=== PATIENT | male | born 1935 | race Caucasian/White ===

== ENCOUNTER 2017-01-24 06:33 | Inpatient (IN) ==
--- NOTE | 2017-01-24 06:43 | Emergency Department Note ---
Arrival - Arrival ED Nursing Triage Note: C/O Left posterior rib pain s/p fall. Onset lastnight. Also c/o right wrist swelling/pain. Pt denies LOC. GCS 15/15 at time of triage. +abrasion/erythema to posterior lower left ribs Mode of Arrival: Wheelchair Source: Patient, Family Time Seen by Provider: 01/24/17 06:37 - History of Present Illness HPI Narrative: Patient is an 81-year-old white male with a history of myelodysplastic syndrome and and chronic leukemia routinely followed by Dr. Smallwood. The patient apparently got up about 4 this morning to let the dog out and fell. He complains of pain in the left posterior rib area. The family is also noticed some bruising in the left lower quadrant. The patient has been receiving blood transfusions weekly over the last 3-4 weeks due to his blood dyscrasia. Patient has been receiving chemotherapy as an outpatient from Dr. Smallwood. Onset (ago): hour(s) (2) Consistency: constant Severity: severe Allergies/Adverse Reactions: Allergies Allergy/AdvReac Type Severity Reaction Status Date / Time No Known Allergies Allergy Verified 11/14/15 09:37 Home Medications: Home Medications Medication Instructions Recorded Confirmed Type traMADol TAB [Ultram] 50 mg PO Q6HR PRN 11/14/15 01/24/17 History Sertraline [Zoloft] 50 mg PO DAILY 01/24/17 01/24/17 History Review of System - Review of System 12 point system: reviewed and no additional remarkable complaints except as stated - Review of System Constitutional: Absent: chills, fever Medical,Surgical,& Family Hx - Medical History HEENT: History of: Ear Problem (tubes to left ear/[place]) Gastrointestinal: History of: Gastrointestinal Cancer (colon) Musculoskeletal: History of: Musculoskeletal Problems (arthritis) - Social History Smoking Status: Never smoker Frequency of Alcohol Use: None Type of Drug Use: None Exam Vital Signs: Vital Signs Temperature 98.0 F 01/24/17 06:33 Pulse Rate 67 01/24/17 06:33 Respiratory Rate 14 01/24/17 06:33 Blood Pressure 121/61 01/24/17 06:33 O2 Sat by Pulse Oximetry 96 01/24/17 06:33 GENERAL: This is a chronically ill-appearing white male in no apparent distress. VITAL SIGNS: Reviewed HEENT: Head is atraumatic and normocephalic. Pupils are equal round react to light. Extraocular movements are intact. Oropharynx is benign with moist mucous membranes. NECK: Neck is soft and supple without tenderness. There are no masses. There is no lymphadenopathy. Trachea is midline. LUNGS: Lungs are clear to auscultation. Chest rises symmetrically. There is no chest wall tenderness. CV: Heart is regular rate and rhythm without murmurs rubs or gallops. ABDOMEN: Abdomen is soft, tender to palpation left upper quadrant. There is an area of ecchymosis in the left lower quadrant. There are no abdominal abnormal masses palpated. There is no organomegaly. Bowel sounds are present and active. There is no tenderness to palpation overlying the iliac wings bilaterally. SKIN: Skin is warm and dry. No rash. EXTREMITIES: Patient has full range of motion without tenderness. There is no pedal edema. NEUROLOGIC: Awake alert and oriented to person. Cranial nerves II through XII are grossly intact. Motor is 3 over 5 in all extremities bilaterally. Results - Labs CBC & BMP: 01/24/17 06:38 Lab Results: I have reviewed the patients labs - Diagnostic Findings Procedure: Chest x-ray: image reviewed by me (Questionable left seventh rib fracture. Increased pulmonary markings bilaterally.), CT Abdomen and Pelvis: image reviewed by me, report reviewed by me (Left posterior 11th rib fracture. Questionable cholecystitis. Cholelithiasis.) Disposition Clinical Impression: Myelodysplastic syndrome, Fall, Left 11th rib fracture, Right wrist pain Case discussed with: patient Disposition: Still a Patient Condition: Stable Time of Disposition: 07:48
[2017-01-24 06:56] LABS: Basophils # 0.1 10*3/uL (0.0-0.2); Basophils % 1.4 % (0.0-0.8); Eosinophils # 0.1 10*3/uL (0.0-0.87); Eosinophils % 0.6 % (0.00-10.9); Hematocrit 21.4 VOL% (42.0-52.0); Immature Granulocytes % 25.7 %; Immature Granulocytes Absolute 2.51 #; Lymphocytes # 1.1 10*3/uL (1.4-4.0); Lymphocytes % 11.7 % (21.2-54.2); Mean Corpuscular HGB Conc 32.7 GM/DL (32-36); Mean Corpuscular Hemoglobin 28 PG (27-34); Mean Corpuscular Volume 85.6 FL (87-102); Monocytes # 1.2 10*3/uL (0.11-0.8); Monocytes % 12.3 % (1.7-12.7); NRBC # 0.12 10*3/uL; Neutrophils # 4.7 10*3/uL (1.4-7.4); Neutrophils % 48.3 % (38.7-73.9); Platelet Count 152 T/CUMM (130-400); Red Cell Distribution Width 17.6 % (9.3-17.3); White Blood Count 9.8 T/CUMM (4-12)
[2017-01-24 07:04] LABS: INR 1.2; PT Patient Result 12.9 SECS; Partial Thromboplastin Time 31.6 SECS (0-40)
--- NOTE | 2017-01-24 07:42 | CT Report ---
CT abdomen pelvis w con Indication: Fall, left flank pain, rule out spleen injury Comparison: CT chest abdomen pelvis dated May 14, 2015 Technique: Multiple axial tomographic images of the abdomen and pelvis were obtained after the administration of 100 cc Omnipaque 350 intravenous contrast. Findings: Mild dependent change of the lungs present. Small right and trace left pleural effusions. No worrisome focal hepatic abnormality. Cholelithiasis suggested near the gallbladder neck which is small volume. Gallbladder appears upper limits of normal in size. Question mild wall thickening of the gallbladder. Pancreas appears grossly unchanged. Splenomegaly noted. The bilateral adrenal glands are grossly unremarkable. The bilateral kidneys are grossly unremarkable. The urinary bladder is incompletely distended. There is no evidence of gastrointestinal obstruction or acute appendicitis. Sequela of prior bowel surgery with anastomotic suture material noted within the right abdomen. Marked atherosclerotic calcifications demonstrated. Acute, minimally displaced posterolateral left rib 11 fracture. IMPRESSION: Acute, minimally displaced posterolateral left rib 11 fracture. Cholelithiasis suggested near the gallbladder neck which is small volume. Gallbladder appears upper limits of normal in size. Question mild wall thickening of the gallbladder. Consider gallbladder ultrasound for further evaluation. Small right and trace left pleural effusions. Splenomegaly. Prior bowel surgery. Other/detailed findings as above. The CT exam was performed using one or more of the following dose reduction techniques: Automated exposure control, adjustment of the mA and/or kV according to patient size, or use of iterative reconstruction technique. PROCEDURE INTERPRETED AT [facility] DEPARTMENT OF RADIOLOGY Final Report Signed by: Dr Abbe Casey
[2017-01-24 07:43] LABS: Total Cells Counted 100
[2017-01-24 07:45] LABS: Band Neutrophils 20 % (0-10); Eosinophils 4 % (0-10); Lymphocytes 19 % (20-55); Metamyelocytes 3 %; Myelocytes 9 %; Segmented Neutrophils 41 % (50-85)
[2017-01-24 07:46] LABS: Atypical Lymphocytes Few; Giant Platelets Few; Macrocytosis Slight; Platelet Estimate Normal; Polychromasia Slight
[2017-01-24 07:47] LABS: Basophilic Stippling Slight
[2017-01-24 07:49] LABS: Albumin 3.3 G/DL (3.4-5.0); Calcium 8.1 MG/DL (8.5-10.1); Osmolality,Calculated 268.2 MOS/KG (273-304); Potassium 4.3 MMOL/L (3.5-5.1); Total Protein 6.1 G/DL (6.4-8.3)
[2017-01-24] MEDS ORDERED: SODIUM CHLORIDE 0.9% 250 ML IV PRN (07:57)
[2017-01-24 08:24] LABS: Apearance,Urine CLEAR (Clear); Bacteria,Urine Occasional /HPF (Few); Bilirubin,Urine Negative (Negative); Blood, Urine Negative (Negative); Glucose,Urine (UA) Negative (Negative); Ketones,Urine Negative (Negative); Mucus,Urine Occasional /LPF (Occasional); Nitrite,Urine Negative (Negative); Protein,Urine Negative; RBC,Urine 1 /HPF (0-4); Squamous Epithelial Cell,Urine Occasional /HPF (0-10); Urine Color Yellow (Yellow); Urine Specific Gravity 1.045 (1.001-1.035); WBC,Urine 1 /HPF (0-6)
--- NOTE | 2017-01-24 08:30 | XRay Report ---
XR chest 1V portable Indication: SOB Comparison: Chest x-ray May 14, 2015 Technique: Single frontal view of the chest. Findings: Mild cardiomegaly. Mild bilateral pulmonary interstitial prominence suspicious for interstitial pulmonary edema. Small bilateral pleural fluid suspected. Chronic/granulomatous change present. Visualized osseous and surrounding soft tissue structures appear grossly unchanged. IMPRESSION: As above. PROCEDURE INTERPRETED AT [facility] DEPARTMENT OF RADIOLOGY Final Report Signed by: Dr Abbe Casey
--- NOTE | 2017-01-24 08:32 | XRay Report ---
XR ribs 2V LT Indication: Left rib pain, fall Comparison: None Technique: Frontal and oblique views of the left ribs. Findings: Acute, minimally displaced fracture to the posterior lateral aspect of left 11th rib. Several old chronic rib deformities are present. Subcentimeter metallic opacity projects over the soft tissues of the left axilla suggestive of foreign body. IMPRESSION: As above. PROCEDURE INTERPRETED AT [facility] DEPARTMENT OF RADIOLOGY Final Report Signed by: Dr Abbe Casey
--- NOTE | 2017-01-24 08:32 | XRay Report ---
Exam: XR pelvis AP 1 or 2 Views Date: 01/24/2017 6:37 AM Indication: Pelvic pain Comparison: None Technical: AP Findings: Degenerative arthritic change present along the acetabular rims bilaterally. Contrast present in the kidneys ureter and bladder. The bony structures reveal no acute findings. Nonspecific GI pattern is present. Impression: 1. Mild degenerative arthritic change of the pelvis involving the hips bilaterally without fracture dislocation 2. Phleboliths 3. Degenerative spondylosis change of the lumbosacral spine PROCEDURE INTERPRETED AT [facility] DEPARTMENT OF RADIOLOGY Final Report Signed by: Dr. Juan Lopez
--- NOTE | 2017-01-24 08:38 | XRay Report ---
XR hand 3V RT, XR wrist 3V RT Indication: Swelling Comparison: None Technique: Frontal, lateral, and oblique views of the right hand. Frontal, lateral, and oblique views of the right wrist. Findings: Severe degenerative change at the radiocarpal joint with significant subchondral cystic change involving the proximal carpal row. Age-indeterminate nondisplaced fracture of the ulnar styloid with articular extension. Question nondisplaced fracture of the scaphoid waist. Soft tissue swelling noted about the wrist. IMPRESSION: As above. PROCEDURE INTERPRETED AT [facility] DEPARTMENT OF RADIOLOGY Final Report Signed by: Dr Abbe Casey
[2017-01-24] MEDS ORDERED: chlorproMAZINE INJ 50 MG in SODIUM CHLORIDE 0.9% 100 ML IV PRN (08:58)
[2017-01-24] MEDS ORDERED: ALPRAZolam 0.25 MG TABLET PO PRN (08:58)
[2017-01-24] MEDS ORDERED: chlorproMAZINE INJ 25 MG in SODIUM CHLORIDE 0.9% 100 ML IV PRN (08:58)
[2017-01-24] MEDS ORDERED: PROMETHAZINE INJ 25 MG in SODIUM CHLORIDE 0.9% 50 ML IV PRN (08:58)
[2017-01-24] MEDS ORDERED: MAGNESIUM HYDROXIDE SUSP 30 ML UDCUP PO PRN (08:58)
[2017-01-24] MEDS ORDERED: BENZTROPINE 2 MG/2 ML AMP IV PRN (08:58)
[2017-01-24] MEDS ORDERED: traMADol 50 MG TABLET PO PRN (08:58)
[2017-01-24] MEDS ORDERED: ALUMINUM/MAGNES/SIMETH MAX STR 30 ML UDCUP PO PRN (08:58)
[2017-01-24] MEDS ORDERED: MYLANTA/LIDO VISC 2:1 300 ML BOTTLE SWISH/SPIT PRN (08:58)
[2017-01-24] MEDS ORDERED: chlorproMAZINE 25 MG TABLET PO PRN (08:58)
[2017-01-24] MEDS ORDERED: LACTULOSE 20 GM/30 ML UDCUP PO PRN (08:58)
[2017-01-24] MEDS ORDERED: MYLANTA/LIDO VISC 2:1 300 ML BOTTLE SWISH/SWAL PRN (08:58)
[2017-01-24] MEDS ORDERED: LOPERAMIDE 2 MG CAPSULE PO PRN ×2 (08:58)
[2017-01-24] MEDS ORDERED: guaiFENesin 200 MG/10 ML UDCUP PO PRN (08:58)
[2017-01-24] MEDS ORDERED: ACETAMINOPHEN 325 MG TABLET PO PRN (08:58)
[2017-01-24] MEDS ORDERED: TEMAZEPAM 7.5 MG CAPSULE PO PRN (08:58)
[2017-01-24] MEDS ORDERED: ONDANSETRON 4 MG/2 ML VIAL IV PRN (08:58)
[2017-01-24] MEDS ORDERED: ROPIVACAINE 0.5% 30 ML VIAL NERVEBLOCK ONE (09:19)
[2017-01-24] MEDS ORDERED: TRIAMCINOLONE ACETONIDE 40 MG/1 ML VIAL MISC INJ ONE (09:19)
--- NOTE | 2017-01-24 13:33 | Pain Management Consult Note ---
Assessment and Plan (1) Left rib fracture Problem details: Rib fractures lower left chest wall Status: Acute Assessment and plan: 01/24/2017. Fall 1 day ago with left-sided rib fracture. The patient on exam has a T10-T11 fracture, x-ray demonstrates T11 fracture. Given the severity of his pain is reasonable to offer him a intercostal nerve block at this time. I expect him to have improvement in pain in this area for the next 1-2 days and at that time we may need to repeat it or the pain returns or may not need a repeat block. y Current Visit: Yes Qualifiers: Encounter type: initial encounter Rib fracture type: multiple ribs Fracture type: closed Qualified Code(s): S22.42XA - Multiple fractures of ribs , left side, initial encounter for closed fracture (2) Right wrist pain Problem details: Right wrist pain Status: Acute Assessment and plan: Pain right wrist with swelling increased swelling and pain over the past 24 hours. Current Visit: Yes (3) Thoracic radiculitis Problem details: Long-standing right chest wall pain Status: Acute Assessment and plan: The patient has a known right-sided thoracic radiculitis chest wall pain chronically. Current Visit: Yes History of Present Illness Chief complaint: Left chest wall pain History of present illness: Mr. Charles is a 81 year old male who fell one day ago and has left chest wall pain. He also reports a good bit of trouble with the right wrist with swelling and pain with movement. Home Medications Medication Instructions Recorded Confirmed Type traMADol TAB [Ultram] 50 mg PO Q6HR PRN 11/14/15 01/24/17 History Sertraline [Zoloft] 50 mg PO DAILY 01/24/17 01/24/17 History Allergies Allergy/AdvReac Type Severity Reaction Status Date / Time No Known Allergies Allergy Verified 11/14/15 09:37 Medical,Surgical,& Family Hx - Medical History HEENT: History of: Ear Problem (tubes to left ear/[place]) Gastrointestinal: History of: Gastrointestinal Cancer (colon) Musculoskeletal: History of: Musculoskeletal Problems (arthritis) - Social History Smoking Status: Never smoker Frequency of Alcohol Use: None Type of Drug Use: None - Constitutional Constitutional: Present: fatigue, frequent falls, malaise - Musculoskeletal Musculoskeletal: Present: arthralgias (Right wrist), back pain, muscle cramps - Neurological Neurological: Present: paresthesias Exam - Constitutional Vitals: Period Temp Pulse Resp BP Sys/[place] Pulse Ox Last 24 Hr 97.0 F-98.0 F 63-75 14-20 111-127/54-61 94-96 General appearance: under weight - Eye Eye exam: Present: EOMI - Respiratory Respiratory exam: Present: chest wall tenderness (Left lower chest wall), rhonchi - Cardiovascular Cardiovascular exam: Present: RRR - GI/Abdominal GI/Abdominal exam: Present: soft - Back Exam Back exam: Present: vertebral tenderness - Neurological Exam Neurological exam: Present: alert, oriented X3 Speech: Present: normal Results - Labs CBC & BMP: 01/24/17 06:38 01/24/17 06:38
--- NOTE | 2017-01-24 13:39 | Operative Note ---
Date of procedure: 01/24/17 Pre-op diagnosis: Rib fracture with chest wall pain Post-op diagnosis: same Procedure: Preoperative diagnosis: #1 left chest wall pain secondary to rib fracture T10- T11, and secondary intercostal neuralgia. Postoperative diagnosis: Same Procedure: Intercostal nerve block left levels T10 T11. Anesthesia: Local Complications: None Findings: The patient tolerated procedure well with significant pain relief. History of present illness: The patient very pleasant 81-year-old male with myeloproliferative disorder and a fall 1 day ago with chest wall pain. X-ray demonstrates T11 fracture. On exam his T10-T11 fracture on the left. He has significant bruising over this area. Procedure note: Risks benefits and indications of the procedure were explained to the patient and understood these and wished to proceed. The patient was placed in the lateral position with left side of his left back was prepped with alcohol using a 25-gauge 1/2 inch needle 10th and 11th intercostal nerve blocks were performed while walking the tip in the office inferior aspect of each these ribs into the area of the intercostal nerve. I then injected each these levels 5 cc of 0.5% ropivacaine and 10 mg of Kenalog. Received a total of 20 mg of Kenalog. Tolerated the procedure well. Anesthesia: local Surgeon / Physician: Isiah Roa Estimated blood loss: none Condition: stable Disposition: floor Results - Labs CBC & BMP: 01/24/17 06:38 01/24/17 06:38 Discharge Plan - Discharge Data Condition at Discharge: Stable - Discharge Medications No Action traMADol TAB [Ultram] 50 mg PO Q6HR PRN PRN Reason: Pain Sertraline [Zoloft] 50 mg PO DAILY - Follow Up or Referral - Forms/Instructions
[2017-01-24] MEDS: SODIUM CHLORIDE 0.9% 1,000 ML IV SCH (13:43)
--- NOTE | 2017-01-24 17:15 | Oncology History&Physical ---
Assessment and Plan (1) Myelodysplastic syndrome Status: Acute Assessment and plan: Status post 2 units of blood. We will observe overnight. We will be happy to keep him as long as needed. Current Visit: Yes (2) Fall Status: Acute Current Visit: Yes (3) Right wrist pain Problem details: Right wrist pain Status: Acute Current Visit: Yes (4) Left rib fracture Problem details: Rib fractures lower left chest wall Status: Acute Current Visit: Yes Qualifiers: Encounter type: initial encounter Rib fracture type: multiple ribs Fracture type: closed Qualified Code(s): S22.42XA - Multiple fractures of ribs , left side, initial encounter for closed fracture History of Present Illness History of present illness: Mr. Charles is a 81 year old male with a history of MDS/MF who has been treated by Dr. Smallwood previously but was most recently being plan to go on home hospice. He had a fall at home last night and fractured his left 11th rib. He presented to the emergency room for evaluation. He was admitted for pain control and transfusion. He received 2 units of blood this morning without any problems. Dr. Roa provided a intercostal nerve block at T10-T11 to help with his left rib pain. Upon my evaluation this afternoon he seems to be doing well. We will watch him overnight and readdress discharge planning tomorrow. Home Medications Medication Instructions Recorded Confirmed Type traMADol TAB [Ultram] 50 mg PO Q6HR PRN 11/14/15 01/24/17 History Aspirin 81 mg PO DAILY 01/24/17 01/24/17 History Eszopiclone [Lunesta] 3 mg PO BEDTIME PRN 01/24/17 01/24/17 History Sertraline [Zoloft] 50 mg PO DAILY 01/24/17 01/24/17 History Allergies Allergy/AdvReac Type Severity Reaction Status Date / Time No Known Allergies Allergy Verified 11/14/15 09:37 Medical,Surgical,& Family Hx - Medical History HEENT: History of: Ear Problem (tubes to left ear/[place]) Gastrointestinal: History of: Gastrointestinal Cancer (colon) Musculoskeletal: History of: Musculoskeletal Problems (arthritis) - Social History Smoking Status: Never smoker Frequency of Alcohol Use: None Type of Drug Use: None 12 point system: reviewed and no additional remarkable complaints except as stated Exam - Constitutional Vitals: Period Temp Pulse Resp BP Sys/[place] Pulse Ox Last 24 Hr 97.0 F-98.0 F 63-77 14-20 111-139/54-62 94-97 General appearance: normal weight, no acute distress - Head Head Exam: Present: normocephalic, atraumatic - Eye Eye Exam: Present: EOMI Pupils: Present: PERRL - ENT ENT exam: Present: normal exam, normal oropharynx - Neck Neck exam: Absent: lymphadenopathy, thyromegaly - Respiratory Respiratory exam: Present: CTAB. Absent: wheezes - Cardiovascular Cardiovascular exam: Present: RRR. Absent: JVD, systolic murmur - GI/Abdominal GI/Abdominal exam: Present: soft. Absent: ascites, distended, firm, mass - Neurological Exam Neurological exam: Present: alert, oriented X3, CN II-XII intact - Psychiatric Psychiatric exam: Present: normal affect, normal mood - Skin Skin exam: Present: warm, dry Results - Labs CBC & BMP: 01/24/17 06:38 01/24/17 06:38 Lab Results: I have reviewed the past 24 hour labs
[2017-01-24] MEDS: diphenhydrAMINE CAP 25 MG CAPSULE PO PRN (20:36)
[2017-01-25 05:38] LABS: Basophils # 0.2 10*3/uL (0.0-0.2); Basophils % 1.9 % (0.0-0.8); Eosinophils % 0.2 % (0.00-10.9); Hematocrit 23.9 VOL% (42.0-52.0); Immature Granulocytes % 23.6 %; Immature Granulocytes Absolute 2.13 #; Lymphocytes # 1.3 10*3/uL (1.4-4.0); Lymphocytes % 14.9 % (21.2-54.2); Mean Corpuscular HGB Conc 33.5 GM/DL (32-36); Mean Corpuscular Hemoglobin 29 PG (27-34); Mean Corpuscular Volume 85.7 FL (87-102); Monocytes # 0.6 10*3/uL (0.11-0.8); Monocytes % 6.8 % (1.7-12.7); Neutrophils # 4.8 10*3/uL (1.4-7.4); Neutrophils % 52.6 % (38.7-73.9); Platelet Count 121 T/CUMM (130-400); Red Blood Count 2.79 MC/CUMM (3.8-5.5); Red Cell Distribution Width 17.1 % (9.3-17.3)
[2017-01-25 06:17] LABS: Band Neutrophils 12 % (0-10); Lymphocytes 23 % (20-55); Metamyelocytes 5 %; Myelocytes 5 %; Segmented Neutrophils 48 % (50-85); Total Cells Counted 100
[2017-01-25 06:19] LABS: Hypochromasia 1+; Microcytosis 1+; Polychromasia Slight
[2017-01-25 06:20] LABS: Basophilic Stippling Slight; Giant Platelets Few; Platelet Estimate Adequate
[2017-01-25] MEDS: SODIUM CHLORIDE 0.9% 1,000 ML IV SCH (06:26)
[2017-01-25] MEDS ORDERED: SODIUM CHLORIDE 0.9% 250 ML IV PRN (07:33)
--- NOTE | 2017-01-25 07:35 | Oncology Progress Note ---
Assessment and Plan (1) Fall Status: Acute Current Visit: Yes (2) Right wrist pain Problem details: Right wrist pain Status: Acute Current Visit: Yes (3) Left rib fracture Problem details: Rib fractures lower left chest wall Status: Acute Current Visit: Yes Qualifiers: Encounter type: initial encounter Rib fracture type: multiple ribs Fracture type: closed Qualified Code(s): S22.42XA - Multiple fractures of ribs , left side, initial encounter for closed fracture (4) Myelofibrosis Status: Acute Current Visit: Yes Oncology Subjective PN Interval history: Mr. Charles was resting comfortably this morning. His daughter was at bedside. I did not wake him but I spoke with her. She states she had a very good night and they would like to stay at least 1 more day in the hospital. This is perfectly fine with me. His hemoglobin did go up to 8.0 but I think he would probably feel better if we gave him 2 more units of blood while he is here. We will set this up for today. We will recheck how he is feeling in the morning and decide if they would like to go home or remain here longer. The plan at the time of discharge is to likely initiate home hospice. Exam - Constitutional Vitals: Period Temp Pulse Resp BP Sys/[place] Pulse Ox Last 24 Hr 97.0 F-98.3 F 63-78 16-22 111-139/54-63 94-98 Results - Labs CBC & BMP: 01/25/17 04:53 01/24/17 06:38 Lab Results: I have reviewed the past 24 hour labs
--- NOTE | 2017-01-25 12:29 | Pain Management Progress Note ---
Assessment and Plan (1) Left rib fracture Problem details: Rib fractures lower left chest wall Status: Acute Assessment and plan: 01/25/2017. The patient is overall considerably improved. No real chest wall complaints today. He sitting up in chair eating and looks to be recently comfortable. No intervention indicated at this time. Discussed the care with his daughter and will repeat as needed after discharge. n 01/24/2017. Fall 1 day ago with left-sided rib fracture. The patient on exam has a T10-T11 fracture, x-ray demonstrates T11 fracture. Given the severity of his pain is reasonable to offer him a intercostal nerve block at this time. I expect him to have improvement in pain in this area for the next 1-2 days and at that time we may need to repeat it or the pain returns or may not need a repeat block. y Current Visit: Yes Qualifiers: Encounter type: initial encounter Rib fracture type: multiple ribs Fracture type: closed Qualified Code(s): S22.42XA - Multiple fractures of ribs , left side, initial encounter for closed fracture (2) Right wrist pain Problem details: Right wrist pain Status: Acute Assessment and plan: 01/25/2017. Patient's right wrist pain is significantly improved. He is 24 hours status post right wrist injection. Pleased with his progress. As an outpatient with a repeat as needed. Discussed with his family. Pain right wrist with swelling increased swelling and pain over the past 24 hours. Current Visit: Yes (3) Thoracic radiculitis Problem details: Long-standing right chest wall pain Status: Acute Assessment and plan: The patient has a known right-sided thoracic radiculitis chest wall pain chronically. Current Visit: Yes Pain - Subjective Interval history: Improved chest wall pain and wrist pain Exam - Constitutional Vitals: Period Temp Pulse Resp BP Sys/[place] Pulse Ox Last 24 Hr 97.4 F-98.3 F 65-82 12-22 118-139/50-63 97-100 Results - Labs CBC & BMP: 01/25/17 04:53 01/24/17 06:38
[2017-01-25] MEDS: NYSTATIN/TRIAMCINOLONE CREAM 15 GM TUBE TOP SCH ×2 (17:06→20:23)
[2017-01-25] MEDS: diphenhydrAMINE CAP 25 MG CAPSULE PO PRN (20:20)
[2017-01-26] MEDS: SODIUM CHLORIDE 0.9% 1,000 ML IV SCH (01:09)
[2017-01-26 03:58] LABS: Basophils # 0.2 10*3/uL (0.0-0.2); Basophils % 2.2 % (0.0-0.8); Eosinophils # 0.1 10*3/uL (0.0-0.87); Eosinophils % 0.8 % (0.00-10.9); Hemoglobin 9.3 GM/DL (14.0-18.0); Immature Granulocytes Absolute 2.08 #; Lymphocytes % 11.4 % (21.2-54.2); Mean Corpuscular HGB Conc 33.2 GM/DL (32-36); Mean Corpuscular Hemoglobin 28 PG (27-34); Mean Corpuscular Volume 85.6 FL (87-102); Monocytes % 11.5 % (1.7-12.7); NRBC # 0.11 10*3/uL; Neutrophils # 4.3 10*3/uL (1.4-7.4); Neutrophils % 50.1 % (38.7-73.9); Platelet Count 108 T/CUMM (130-400); Red Blood Count 3.27 MC/CUMM (3.8-5.5); Red Cell Distribution Width 16.8 % (9.3-17.3); White Blood Count 8.7 T/CUMM (4-12)
[2017-01-26 05:24] LABS: Band Neutrophils 8 % (0-10); Lymphocytes 15 % (20-55); Metamyelocytes 5 %; Myelocytes 4 %; Promyelocytes 3 %; Segmented Neutrophils 53 % (50-85); Total Cells Counted 100
[2017-01-26 05:25] LABS: Hypochromasia 1+; Microcytosis 1+
[2017-01-26 05:26] LABS: Basophilic Stippling Slight; Platelet Estimate Adequate; Polychromasia Slight
[2017-01-26 05:27] LABS: Giant Platelets Few; Ovalocytes Slight
--- NOTE | 2017-01-26 08:13 | Discharge Summary ---
Hospital Course - Hospital Course Hospital Course: 81-year-old white male with myelofibrosis followed by Dr. Smallwood. He was admitted with a left rib fracture and anemia. Dr. Roa with pain management provided a intercostal nerve block with good relief in pain. He was transfused a total of 4 units of blood while he was in the hospital. His hemoglobin today is above 9. He feels well and is adamant that he wants to go home. We will discharge him home today. His family was planning on placing him on home hospice and is already been getting the paperwork started on this. Diagnosis - Discharge Diagnosis (1) Fall Status: Acute (2) Right wrist pain Status: Acute (3) Left rib fracture Status: Acute (4) Myelofibrosis Status: Acute Discharge Plan - Discharge Data Disposition: Disch To Home/Self Care Condition at Discharge: Stable Discharge Diet: advance to your usual diet Activity: resume usual activities as tolerated Hygiene: no restrictions Weight Bearing at Discharge: full weight bearing - Discharge Medications Continue traMADol TAB [Ultram] 50 mg PO Q6HR PRN PRN Reason: Pain Eszopiclone [Lunesta] 3 mg PO BEDTIME PRN PRN Reason: Sleep Sertraline [Zoloft] 50 mg PO DAILY Aspirin 81 mg PO DAILY - Follow Up or Referral - Forms/Instructions Exam - Constitutional Vitals: Period Temp Pulse Resp BP Sys/[place] Pulse Ox Last 24 Hr 98.0 F-98.8 F 66-85 12-22 119-176/50-93 98-100 Discharge Results Labs on day of discharge: Labs from last 24 hours 01/26/17 01/25/17 03:36 04:53 WBC 8.7 RBC 3.27 L Hgb 9.3 L Hct 28.0 L MCV 85.6 L MCH 28 MCHC 33.2 RDW 16.8 Plt Count 108 L Neut % (Auto) 50.1 Lymph % (Auto) 11.4 L [place] % (Auto) 11.5 Eos % (Auto) 0.8 Baso % (Auto) 2.2 H Neut # (Auto) 4.3 Lymph # (Auto) 1.0 L [place] # (Auto) 1.0 H Eos # (Auto) 0.1 Baso # (Auto) 0.2 Total Counted 100 Immature Gran % 24.0 Nucleated RBC % 1.3 Immature Gran # 2.08 Segmented Neutrophils 53 Band Neutrophils 8 Lymphocytes 15 L Monocytes 5 Basophils 2.0 H Metamyelocytes 5 Myelocytes 4 Promyelocytes 3 Nucleated RBCs # 0.11 Blast Cells 5 Platelet Estimate Adequate Giant Platelets Few Immature Plt Fraction 0.0 Polychromasia Slight Hypochromasia 1+ Basophilic Stippling Slight Microcytosis 1+ Ovalocytes Slight Morphology Comment Blood Type Cancelled Antibody Screen Cancelled Crossmatch See Detail Blood Bank Comment Cancelled DS: Provider Date of admission: 01/24/17 07:52 Primary care physician: . No PCP Attending physician on admission: Satinder Mercado MD Consults: 01/24/17 08:58 Consult to Physician [CONS] Routine Comment: L 11th rib fracture Consulting Provider: Isiah Roa Consulting Provider Notified: Yes When should Consulting Provider be notified: Now Consult to Specialist Group: Pain Management When should Consulting Provider be notified: Now Person Notified: ZOILA Date Notified: 01/24/17 Time Notified: 09:24 01/25/17 10:37 Consult to Case Mgmt/Social Srvs [CONS] Routine Reason for Case Mgmt/Social Srvs: Hospice Referral Discharging clinician: Satinder Mercado MD
[2017-01-26 08:36] VITALS: BP 138/69
[2017-01-26] MEDS: NYSTATIN/TRIAMCINOLONE CREAM 15 GM TUBE TOP SCH (10:16)
== END 2017-01-26 10:25 | disposition hospice, home (50) | DRG 184 ==
LOC: N.ED 06:33 → N.EDINP 07:52 → N.4E 08:39
PROVIDERS: ADMIT Specialist; ATTEND Specialist